=== PATIENT | male | born 1930 ===

== ENCOUNTER 2017-05-19 08:46 | Day surgery (SDC) | payer MEDICARE, OTHER ==
[~2017-05-19 08:46] MED LIST: Buffered Lidocaine 0.9% SYRIN* 5 ML/SYR SYRINGE INTRADERM ONE; Famotidine IV* 10 MG/ML 2 ML (20 mg) IV ONE; Levalbuterol 0.63MG/3ML NEB* UNIT OF USE INH ONE; Metoclopramide TAB* 10 MG PO ONE
[2017-05-19] MEDS ORDERED: Levalbuterol 1.25MG/0.5ML NEB ONE (08:56)
[2017-05-19] MEDS ORDERED: Metoclopramide TAB* 10 MG ONE (08:56)
[2017-05-19] MEDS ORDERED: Famotidine IV* 10 MG/ML 2 ML (20 mg) ONE (08:56)
[2017-05-19] MEDS ORDERED: Lidocaine 2% PF * 5 ML VIAL ONE (10:33)
[2017-05-19] MEDS ORDERED: Cisatracurium* 2 MG/ML MDV 5 ML ONE (10:33)
[2017-05-19] MEDS ORDERED: Dexamethasone IV* 4 MG/ML 1 ML (4 MG) ONE (10:33)
[2017-05-19] MEDS ORDERED: Ondansetron INJ* 2 MG/ML VIAL ONE (10:33)
[2017-05-19] MEDS ORDERED: EPHEDrine (Pressors)* 50 MG/ML VIAL ONE (10:33)
[2017-05-19] MEDS ORDERED: Propofol* 10 MG/ML 20 ML BTL IV PUSH ONE (10:33)
[2017-05-19] MEDS ORDERED: fentaNYL* 50 MCG/ML 2 ML VIAL (100 MCG VIAL) ONE ×2 (10:33→12:00)
[2017-05-19] MEDS ORDERED: Midazolam* 1 MG/ML 5 ML VIAL (5 MG) ONE (10:33)
[2017-05-19] MEDS ORDERED: Metoprolol Tartrate IV* 1 MG/ML 5 ML VIAL ONE (11:29)
[2017-05-19] MEDS ORDERED: PROCHLORPERAZINE INJ 5 MG/ML 2 ML VIAL IV PRN (12:39)
[2017-05-19] MEDS ORDERED: Naloxone* 0.4 MG/ML 1 ML VIAL IV PRN (12:39)
[2017-05-19] MEDS ORDERED: fentaNYL* 50 MCG/ML 2 ML VIAL (100 MCG VIAL) IV PRN (12:39)
[2017-05-19 12:59] VITALS: BP 141/72
--- NOTE | 2017-05-20 10:39 | PRO ---
BRONCHOSCOPY REPORT: DATE OF PROCEDURE: 05/19/17 PROCEDURE PERFORMED: Bronchoscopy with endobronchial ultrasound-guided fine needle aspiration from station 7 lymph nodes. PREPROCEDURAL DIAGNOSIS: Lung mass, mediastinal adenopathy, rule out malignancy. POSTPROCEDURAL DIAGNOSIS: Lung cancer. ANESTHESIA: General anesthesia. ANESTHESIOLOGIST: Dr. Max. DESCRIPTION OF PROCEDURE: Informed consent was obtained from the patient prior to the procedure after all the risks and benefits were thoroughly explained. The patient was evaluated recently for cough with CT of chest showing evidence of left infrahilar mass along with mediastinal adenopathy. Appropriate time- out was agreed on by the attending staff. Informed consent was obtained from the patient's who is his healthcare proxy as patient has significant dementia. A flexible Olympus bronchoscope was inserted through ET tube for airway inspection. No endobronchial lesions were noted. Thick white secretions were noted and were suctioned out. Bronchoscope was then inserted to right bronchial tree. No endobronchial lesions were noted. All airways were patent and open. Bronchoscope was then advanced into the left bronchial tree, which was inspected. There was evidence of narrowing and extrinsic compression of left lower lobe bronchus. There was evidence of bleeding with minimal suction in that area. No obvious endobronchial lesions were noted. Bronchoscope was then withdrawn and the EBUS bronchoscope was inserted. Station 7 node was enlarged and was accessed with 6 to 7 passes. Rapid on-site evaluation revealed malignant cells. Rest of the specimen was placed in Cyto[facility]yt. Given positive station 7 lymph nodes, no other lymph nodes were sampled. Patient was extubated and seen in recovery in optimal condition. Awaiting final results. [id number]/[facility] #: [id number] [facility]
== END 2017-05-19 13:19 | disposition home or self-care (01) ==
LOC: OR 08:46
PROVIDERS: ATTEND Internal Medicine
DX: C34.92 Malignant neoplasm of unspecified part of left bronchus or lung (principal); C77.1 Secondary and unspecified malignant neoplasm of intrathoracic lymph nodes; Z87.891 Personal history of nicotine dependence; F03.90 Unspecified dementia, unspecified severity, without behavioral disturbance, psychotic disturbance, mood disturbance, and anxiety; I48.2 Chronic atrial fibrillation; Z79.01 Long term (current) use of anticoagulants; E11.9 Type 2 diabetes mellitus without complications; Z79.84 Long term (current) use of oral hypoglycemic drugs; Z79.4 Long term (current) use of insulin; I10 Essential (primary) hypertension; E78.2 Mixed hyperlipidemia; I35.0 Nonrheumatic aortic (valve) stenosis; Z95.2 Presence of prosthetic heart valve
CPT/HCPCS: 81445; 88172; 88173; 88177; 88305; 88341; 88342; 88360; A9270-GY; J1100; J2250; J2405; J2704; J3010; J3490